=== PATIENT | female | born 1990 | race African-American/Black ===

== ENCOUNTER → 2017-01-09 | Outpatient (CLI) | payer OTHER ==
[2016-01-15 16:51] VITALS: BP 154/75
[~2017-01-09] MED LIST: HYDR-971 PO; METH80VI IJ; ONDA4TAB10 SL; ORPH100T PO; PRED50TA PO
--- NOTE | 2017-01-09 15:51 | RAD ---
Indication small for dates. Early obstetrical ultrasound examination was performed. No similar imaging is available. The uterus measures approximately 9 x 5.7 x 6.6 cm. Within the fundus of the uterus there is a gestational sac yolk sac and pole. The crown-rump length of 0.24 cm is compatible with a gestational age of approximately 5 weeks 6 days. By sonographic analysis the expected date of confinement is 09/05/2017. No heart rate was detected detectable. viability is not confirmed. A small amount of free fluid was seen in the cul-de-sac. Within the left ovary there appears to be a simple cyst. 2 complex, likely physiologic cysts are seen in the right ovary age measuring approximately 2 cm in greatest dimension. IMPRESSION: Single intrauterine fetus of approximately 6 weeks gestation. No cardiac activity yet seen. viability is not certain. Small amount of free fluid in the pelvis likely physiologic. 2 complex, likely physiologic, cysts associated with the right ovary
== END | disposition home or self-care (01) ==
LOC: US 15:21
PROVIDERS: ATTEND Family Medicine
DX: O36.5910 Maternal care for other known or suspected poor fetal growth, first trimester, not applicable or unspecified (principal); Z3A.01 Less than 8 weeks gestation of pregnancy
CPT/HCPCS: 76801

== ENCOUNTER → 2017-01-19 | Outpatient (CLI) | payer OTHER ==
[2016-01-15 16:51] VITALS: BP 154/75
--- NOTE | 2017-01-19 15:59 | KCIC ---
EXAM: Obstetric sonogram. HISTORY: viability assessment. TECHNIQUE: Sonographic imaging of the pelvis was performed. COMPARISON: None. FINDINGS: The uterus measures 11.3 x 5.4 x 8.4 cm. There is a single intrauterine gestational sac with pole and yolk sac. The crown-rump length is 0.95 cm, corresponding with an estimated gestational age of 7 weeks and 0 days. The heart rate is 140 beats per minute. The right ovary measures 3.8 x 3.4 x 2.6 cm the left ovary measures 1.8 x 1.5 x 2.3 cm. There is normal both within both ovaries. There are complex right ovarian cysts measuring 2.4 cm and 1.3 cm. There is a small amount of free fluid in the cul-de-sac. IMPRESSION: 1. Single intrauterine fetus with an estimated gestational age of 7 weeks and 0 days and heart rate of 140 bpm. 2. 2.4 cm and 1.3 cm complex right ovarian cysts. 3. Small amount of nonspecific pelvic free fluid. Electronically signed by: Annia Rooney MD (01/19/2017 3:56 PM) [id number]
== END | disposition home or self-care (01) ==
LOC: KCIC US 12:56
PROVIDERS: ATTEND Family Medicine
DX: O34.81 Maternal care for other abnormalities of pelvic organs, first trimester (principal); O20.0 Threatened abortion; N83.201 Unspecified ovarian cyst, right side; Z3A.01 Less than 8 weeks gestation of pregnancy
CPT/HCPCS: 76801; 76817

== ENCOUNTER → 2017-04-07 | Outpatient (CLI) | payer OTHER | END | disposition home or self-care (01) | LOC: KCIC US 15:05 | DX: Z34.82 Encounter for supervision of other normal pregnancy, second trimester (principal); Z3A.19 19 weeks gestation of pregnancy; R63.5 Abnormal weight gain | CPT/HCPCS: 76805 ==

== ENCOUNTER 2020-07-14 15:08 | Emergency (ER) | payer MEDICAID, OTHER ==
[2017-02-13 06:40] VITALS: BP 130/83
[~2020-07-14] VITALS: Ht 165.1 cm; Wt 67.7 kg
[~2020-07-14 15:08] MED LIST changes: +HYDR-3164 PO; -HYDR-971 PO
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
== END 2020-07-14 17:00 | disposition home or self-care (01) ==
LOC: ER 15:08
DX: S42.001A Fracture of unspecified part of right clavicle, initial encounter for closed fracture (principal); V89.2XXA Person injured in unspecified motor-vehicle accident, traffic, initial encounter; Y93.89 Activity, other specified; Y92.89 Other specified places as the place of occurrence of the external cause; Y99.8 Other external cause status
CPT/HCPCS: 99281

== ENCOUNTER 2021-02-03 10:25 | Emergency (ER) | payer OTHER, MEDICAID ==
[~2021-02-03] VITALS: Ht 165.1 cm; Wt 70.4 kg
[2021-02-03 10:32] VITALS: BP 132/92
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
== END 2021-02-03 12:16 | disposition home or self-care (01) ==
LOC: ER 10:25
DX: S29.012A Strain of muscle and tendon of back wall of thorax, initial encounter (principal); M19.90 Unspecified osteoarthritis, unspecified site; Z88.0 Allergy status to penicillin; Z88.1 Allergy status to other antibiotic agents; Z91.018 Allergy to other foods; V49.59XA Passenger injured in collision with other motor vehicles in traffic accident, initial encounter; Y93.89 Activity, other specified; Y92.89 Other specified places as the place of occurrence of the external cause; Y99.8 Other external cause status
CPT/HCPCS: 73030; 99283